=== PATIENT | female | born 1950 | race Caucasian/White ===

== ENCOUNTER 2018-02-13 13:48 | Emergency (ER) | payer MEDICARE ==
[~2018-02-13] VITALS: Ht 152.4 cm; Wt 97.5 kg
[~2018-02-13 13:48] MED LIST: ASPI81TA59 PO; ATOR10TA60 PO; CARV3.12 PO; CYCL10TA2 PO; GABA-587 PO; HYDR1TAB12 PO; INSU100I13 SQ; INSU100I17 SQ; LIRA0.6P SQ; LISI-334 PO; LOVA40TA2 PO; MELO7.5T29 PO; METF10007 PO; METO10TA81 PO; ONDA4TAB10 PO; OXYC-411 PO; OXYC10TA45 PO; TICA90TA PO; TIZA4TAB PO
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
--- NOTE | 2018-02-13 14:48 | EKG ---
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
[2018-02-13] MEDS ORDERED: cloNIDine HCL 0.1 MG TABLET PO ONE (15:30)
[2018-02-13] MEDS ORDERED: HYDROcodone/APAP 5/325MG 1 TAB TABLET PO ONE (15:45)
[2018-02-13] MEDS ORDERED: HYDR-2758 PO (15:47)
[2018-02-13 16:45] VITALS: BP 106/70
== END 2018-02-13 16:45 | disposition home or self-care (01) ==
LOC: ER 13:48
DX: S92.521A Displaced fracture of middle phalanx of right lesser toe(s), initial encounter for closed fracture (principal); S20.219A Contusion of unspecified front wall of thorax, initial encounter; R51 Headache; E78.00 Pure hypercholesterolemia, unspecified; M54.2 Cervicalgia; I11.9 Hypertensive heart disease without heart failure; E11.40 Type 2 diabetes mellitus with diabetic neuropathy, unspecified; M47.812 Spondylosis without myelopathy or radiculopathy, cervical region; I25.2 Old myocardial infarction; Z90.49 Acquired absence of other specified parts of digestive tract; Z95.1 Presence of aortocoronary bypass graft; Z98.890 Other specified postprocedural states; Z88.2 Allergy status to sulfonamides; Z88.8 Allergy status to other drugs, medicaments and biological substances; V49.9XXA Car occupant (driver) (passenger) injured in unspecified traffic accident, initial encounter; Y93.89 Activity, other specified; Y92.488 Other paved roadways as the place of occurrence of the external cause; Y99.8 Other external cause status
CPT/HCPCS: 70450; 71101; 72125; 73630; 93005; 99284-25